=== PATIENT | male | born 1965 ===

== ENCOUNTER 2022-02-25 06:40 | Day surgery (SDC) | payer OTHER | END 2022-02-25 11:45 | disposition home or self-care (01) | LOC: AMB-ENDOS 06:40 | PROVIDERS: ATTEND Surgery | DX: D12.4 Benign neoplasm of descending colon (principal); Z20.822 Contact with and (suspected) exposure to COVID-19; K57.30 Diverticulosis of large intestine without perforation or abscess without bleeding ==